=== PATIENT | female | born 1975 | race American Indian/Alaskan Native ===

== ENCOUNTER 2018-06-04 09:51 | Emergency (ER) | payer OTHER ==
[2018-06-04] MEDS ORDERED: TORADOL IM ONE (12:05)
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
[2018-06-04] MEDS ORDERED: ULTRAM PO ONE (13:10)
[2018-06-04] MEDS ORDERED: ULTRAM ONE (13:13)
--- NOTE | 2018-06-04 13:33 | XRay Report ---
BILATERAL RIBS, 4 views: History: Pain. Routine views of the rib cage demonstrate normal mineralization with no significant contour abnormalities, fractures or destructive lesions. PA view of the chest demonstrates no underlying cardiopulmonary abnormalities, fluid or pneumothorax. IMPRESSION: Normal bilateral ribs.
[2018-06-04 13:59] VITALS: BP 145/89
== END 2018-06-04 13:57 | disposition home or self-care (01) ==
LOC: ED 09:51
DX: R07.89 Other chest pain (principal); M79.10 Myalgia, unspecified site; J45.909 Unspecified asthma, uncomplicated; Z88.5 Allergy status to narcotic agent; Z90.49 Acquired absence of other specified parts of digestive tract; Z98.51 Tubal ligation status; V89.2XXA Person injured in unspecified motor-vehicle accident, traffic, initial encounter; Y93.89 Activity, other specified; Y92.488 Other paved roadways as the place of occurrence of the external cause; Y99.8 Other external cause status
CPT/HCPCS: 71111; 93005; 93010; 99283; J1885